=== PATIENT | female | born 1940 | race Caucasian/White ===

== ENCOUNTER 2017-11-21 13:50 | Emergency (ER) | payer OTHER, MEDICARE ==
[2017-11-21 14:10] VITALS: RESP 18
[2017-11-21 14:52] VITALS: TEMP 97.7
[2017-11-21] MEDS ORDERED: LIDOCAINE HCL 1% MPF 30 SOL ONE (15:10)
[2017-11-21] MEDS ORDERED: TDAP VACCINE 0.5 ML SUS IM ONE ×2 (15:47→15:48)
[2017-11-21] MEDS ORDERED: BACITRACIN 500 U/GM OIN TOP ONE ×4 (16:30→16:50)
[2017-11-21 19:29] VITALS: BP 129/89; PULSE 85; O2SAT 98
[2017-11-22] MEDS ORDERED: LIDOCAINE HCL 1% MDV 50 ML SOL SC ONE (15:00)
[2017-11-22] MEDS ORDERED: BACITRACIN 500 U/GM OIN TOP ONE (15:00)
== END 2017-11-21 17:09 | disposition home or self-care (01) | DRG 605 ==
LOC: ED 13:50
DX: S01.81XA Laceration without foreign body of other part of head, initial encounter (principal); W19.XXXA Unspecified fall, initial encounter
CPT/HCPCS: 12053; 70150; 73562; 90471; 90715; 99284; A6402; A6446; A9270-GY; J2001